=== PATIENT | male | born 1950 | race Two or more races ===

== ENCOUNTER 2018-05-28 23:54 | Inpatient (IN) | payer BC, MEDICARE ==
[~2018-05-28] VITALS: Ht 172.7 cm; Wt 75.3 kg
--- NOTE | 2018-05-29 00:13 | NUR ---
[facility] 98% IN RA. C/O OF LOWER GI BLEED WITH BRIGHT BLOOD X 1 DAY AND HYPOTENSION. PT IS AOX4 ABLE TO VEBRLIZED MEDICAL HISTORY. AFEBRILE. VSS. S/E BY DR. MUELLER AT BEDSIDE. POC PROVIDED BY . WILL CONTINUE TO MONITOR,.
[2018-05-29] MEDS ORDERED: PANTOPRAZOLE 40 MG VIAL ONE (00:24)
[2018-05-29] MEDS ORDERED: PANTOPRAZOLE 80 MG in IV NS 0.9% 100 ML IV ONE (00:30)
[2018-05-29 00:35] LABS: BASOPHILS # (AUTO) 0.1 /CMM (0.0-0.2); BASOPHILS % (AUTO) 0.4 % (0.0-2.0); EOSINOPHILS % (AUTO) 2.9 % (0.0-6.0); HEMATOCRIT 24 % (39-51); HEMOGLOBIN 7.5 g/dL (13.5-17.5); LYMPHOCYTES # (AUTO) 1.2 /CMM (0.8-4.8); LYMPHOCYTES % (AUTO) 10.3 % (20.0-44.0); MEAN CORPUSCULAR HGB CONC 31 g/dl (31.0-36.0); MEAN CORPUSCULAR VOLUME 77 fL (80-96); MONOCYTES # (AUTO) 0.6 /CMM (0.1-1.30); MONOCYTES % (AUTO) 5.2 % (2.0-12.0); NEUTROPHILS # (AUTO) 9.7 /CMM (1.8-8.9); NEUTROPHILS % (AUTO) 81.2 % (43.0-81.0); PLATELET COUNT (AUTO) 272 /CMM (150-450); RDW COEFFICIENT OF VARIATION 16.6 (11.5-15.0); RED BLOOD CELL COUNT(AUTO) 3.17 MIL/uL (4.5-6.0); WHITE BLOOD COUNT (AUTO) 11.9 K/uL (4.3-11.0)
[2018-05-29] MEDS ORDERED: IOHEXOL-300 100 ML VIAL IV ONE (00:41)
[2018-05-29 00:45] LABS: CALCIUM, SERUM 7.3 mg/dL (8.5-10.1); CREATININE 0.9 mg/dL (0.6-1.3); POTASSIUM 3.7 mmol/L (3.5-5.1)
[2018-05-29 00:53] LABS: INR 1.12 (0.87-1.13)
[2018-05-29 01:06] LABS: ALBUMIN 2.4 g/dL (3.4-5.0); BILIRUBIN,TOTAL 0.1 mg/dL (0.2-1.0); TOTAL PROTEIN, SERUM 5.4 g/dL (6.4-8.2)
[2018-05-29] MEDS ORDERED: IV NS 0.9% 1,000 ML IV PRN (01:55)
--- NOTE | 2018-05-29 01:57 | NUR ---
GOWNED PT STILL NOTED WITH BLOOD ON HIS UNDERWEAR. PT DENIES DIZZINESS, OR PAIN AT THIS TIME. REMAINED AFEBRILE VSS. PT WILL BE TRANSFER IN [facility] FOR CONTINUITY OF CARE.
[2018-05-29] MEDS ORDERED: HYDROCODONE/APAP 5/325MG 1 EACH TABLET PO PRN (02:00)
[2018-05-29] MEDS ORDERED: ACETAMINOPHEN 325 MG TABLET PO PRN (02:00)
[2018-05-29] MEDS ORDERED: ONDANSETRON HCL/PF 4 MG/2 ML VIAL IVP PRN (02:00)
[2018-05-29] MEDS ORDERED: ZOLPIDEM TARTRATE 5 MG TABLET PO PRN (02:00)
[2018-05-29] MEDS ORDERED: MAG HYDROX/AL HYDROX/SIMETH 30 ML UDC PO PRN (02:00)
[2018-05-29] MEDS ORDERED: MAGNESIUM HYDROXIDE 30 ML UDC PO PRN (02:00)
[2018-05-29] MEDS ORDERED: Z GUARD REMEDY 2 OZ OINT TP PRN (02:00)
--- NOTE | 2018-05-29 02:20 | NUR ---
RECEIVED REPORT ABOUT PT FROM ER NURSE EZEQUIEL
[2018-05-29 02:30] VITALS: BP 115/66
--- NOTE | 2018-05-29 02:35 | NUR ---
PT ARRIVED FROM ER TO 3 BED 315-1
--- NOTE | 2018-05-29 02:45 | NUR ---
MS SENIOR PLANNING ANALYST NOTES PT WAS RECEIVED IN BED IN LOWEST AND LOCKED POSITION WITH SIDE RAILS UPX2, NO PAIN OR DISTRESS NOTED, BREATHING IS EVEN AND UNLABORED ON ROOM AIR, RIGHT AC 16G IS PATENT AND INTACT WITH IVF RUNNING AT 75ML/HR, PT SKIN IS DRY AND INTACT, A/0 X3, PT IS AMBULATORY, SAFETY PRECAUTIONS IN PLACE, CALL LIGHT WITHIN REACH, WILL CONTINUE TO ASSESS
--- NOTE | 2018-05-29 06:41 | NUR ---
MS RN CLOSING NOTES PT IN BED IN LOWEST AND LOCKED POSITION WITH SIDE RAILS UPX2, NO PAIN OR DISTRESS NOTED AT THIS TIME, BREATHING IS EVEN AND UNLABORED ON ROOM AIR, RIGHT AC 16G IS PATENT AND INTACT WITH IVF RUNNING AT 75ML/HR, PT SKIN IS DRY AND INTACT, A/0 X3, PT IS AMBULATORY, SAFETY PRECAUTIONS IN PLACE, CALL LIGHT WITHIN REACH, ALL NEEDS ATTENDED TO, WILL ENDORSE TO DAY SHIFT FOR JIM.
[2018-05-29 06:51] LABS: BASOPHILS % (AUTO) 0.4 % (0.0-2.0); EOSINOPHILS % (AUTO) 2.6 % (0.0-6.0); HEMATOCRIT 26 % (39-51); HEMOGLOBIN 8.1 g/dL (13.5-17.5); LYMPHOCYTES # (AUTO) 1.6 /CMM (0.8-4.8); LYMPHOCYTES % (AUTO) 21.5 % (20.0-44.0); MEAN CORPUSCULAR HGB CONC 32 g/dl (31.0-36.0); MEAN CORPUSCULAR VOLUME 76 fL (80-96); MONOCYTES # (AUTO) 0.6 /CMM (0.1-1.30); MONOCYTES % (AUTO) 7.4 % (2.0-12.0); NEUTROPHILS # (AUTO) 5.2 /CMM (1.8-8.9); NEUTROPHILS % (AUTO) 68.1 % (43.0-81.0); PLATELET COUNT (AUTO) 278 /CMM (150-450); RDW COEFFICIENT OF VARIATION 16.5 (11.5-15.0); RED BLOOD CELL COUNT(AUTO) 3.35 MIL/uL (4.5-6.0); WHITE BLOOD COUNT (AUTO) 7.6 K/uL (4.3-11.0)
--- NOTE | 2018-05-29 07:05 | NUR ---
MS RN OPENING NOTE RECEIVED PT IN BED, ALERT AND ORIENTED X4. DENIES N/V, CHEST PAIN, SOB AT THIS TIME. BREATHING IS EVEN AND UNLABORED ON ROOM AIR. R AC IV NOTED TO BE PULLED OUT AND ON BED. WILL INSERT AND NEW IV AND RESUME FLUIDS. ALL NEEDS ATTENDED TO, SAFETY PRECAUTIONS MAINTAINED. BED IS LOCKED AND IN LOWEST POSITION, SIDE RAILS UP X2, CALL LIGHT IS WITHIN REACH.
[2018-05-29 07:08] LABS: ALBUMIN 2.6 g/dL (3.4-5.0); BILIRUBIN,TOTAL 0.2 mg/dL (0.2-1.0); CALCIUM, SERUM 7.9 mg/dL (8.5-10.1); CREATININE 0.9 mg/dL (0.6-1.3); MAGNESIUM 1.9 mg/dL (1.8-2.4); PHOSPHORUS 3.8 mg/dL (2.5-4.9); POTASSIUM 4.2 mmol/L (3.5-5.1); TOTAL PROTEIN, SERUM 5.8 g/dL (6.4-8.2)
--- NOTE | 2018-05-29 08:00 | NUR ---
MS RN NEW IV INSERTED NEW PERIPHERAL IV INSERTED, L FA #[id number]. IV IS PATENT, CLEAN, DRY AND INTACT. NS @ 75ML/HR RESUMED.
[2018-05-29 08:17] VITALS: BP 113/65
--- NOTE | 2018-05-29 10:00 | NUR ---
MS RN NOTE PT REPORTED FEELING "DIZZY" AND "LIGHTHEADED" AFTER AMBULATING TO THE BATHROOM. PT ASSISTED BACK TO BED, BP: 119/69, HR 86, SP02 98%. PERIPHERAL PULSES STRONG AND EQUAL BILATERALLY, LUNG SOUNDS CLEAR, SKIN IS WARM AND DRY TO TOUCH. EDUCATED PT TO CALL FOR ASSISTANCE BEFORE GETTING OUT OF BED, PT VERBALIZED UNDERSTANDING. WILL CONTINUE TO MONITOR.
[2018-05-29 10:15] VITALS: BP 112/62
[2018-05-29 12:00] VITALS: BP 122/74
--- NOTE | 2018-05-29 13:30 | NUR ---
RN PT D/C TO ANOTHER FACILITY INFORMED BY CHARGE NURSE JASON THAT PT WILL TRANSFER TO [facility] DUE TO INSURANCE. WILL BEGIN EXIT CARE, PENDING DISTRICT ATTORNEY TIME.
[2018-05-29 16:00] VITALS: BP_SYST 106; BP_SYST 121; BP_DIAS 56; BP_DIAS 70
--- NOTE | 2018-05-29 16:30 | NUR ---
MS RN PT TRANSFERRED TO NEW FACILITY PT TRANSFERRED TO [facility], ROOM 507-B. REPORT GIVEN TO JENNIFER AVITIA FOR CONTINUITY OF CARE. PT VS ARE STABLE, BREATHING IS EVEN AND UNLABORED ON ROOM AIR, DENIES N/V, CHEST PAIN, SOB OR DIZZINESS AT THIS TIME. L FA #[id number] TO REMAIN AND IS PATENT, CLEAN, DRY AND INTACT. ALL BELONGINGS ACCOUNTED FOR AND BELONGINGS LIST SIGNED AND PLACED IN CHART. DISCHARGE AND TRANSFER PAPERWORK AND EDUCATION PROVIDED PER HOSPITAL POLICY. SUMMARY OF CARE PAPERWORK AND REPORT GIVEN TO AMBULANCE STAFF.
[2018-05-29] MEDS ORDERED: PEG 3350/NA SULF,BICARB,CL/KCL 4,000 ML BOTTLE PO ONE (19:30)
== END 2018-05-29 16:43 | disposition short-term general hospital (02) | DRG 378 ==
LOC: ER 23:56 → MED 05-29 01:37
PROVIDERS: ADMIT Internal Medicine; ATTEND Internal Medicine
DX: K92.2 Gastrointestinal hemorrhage, unspecified (principal); D62 Acute posthemorrhagic anemia; E44.0 Moderate protein-calorie malnutrition; K62.9 Disease of anus and rectum, unspecified; D50.0 Iron deficiency anemia secondary to blood loss (chronic); E78.5 Hyperlipidemia, unspecified; Z86.010 Personal history of colon polyps; D72.829 Elevated white blood cell count, unspecified
CPT/HCPCS: 36415; 80048-TC; 80053-TC; 80076-TC; 83690-TC; 83735-TC; 84100-TC; 85025-TC; 85730-TC; 86850-TC; 87081-TC; A4606; C9113; J7030; Q9967; Z7610